=== PATIENT | female | born 1980 | race Caucasian/White ===

== ENCOUNTER 2024-07-27 00:47 | Outpatient (CLI) | payer BC, SELFPAY ==
[2024-07-27 17:09] LABS: TSH (W/Ref FT4) 0.81 uIU/mL (0.36-3.74)
[2024-07-28 22:25] LABS: Estradiol 38 pg/mL (See Note)
[2024-07-30 09:58] LABS: FSH 20.5 mIU/mL (See Note)
[2024-07-30 10:02] LABS: LH 13.5 mIU/mL (See Note); Prolactin 10.5 ng/mL (See Note)
== END 2024-07-27 00:48 | disposition home or self-care (01) ==
LOC: LBO 00:47
DX: N92.6 Irregular menstruation, unspecified (principal)
CPT/HCPCS: 36415; 84402; 84403; 82670; 83001; 83002; 84146; 84443

== ENCOUNTER 2024-12-27 14:04 | Outpatient (REF) | payer BC, SELFPAY ==
[2024-12-27 15:21] LABS: Abs Immature Grans 0.02 10^3/uL (0.0-0.06); HCT 43.0 % (36.0-46.0); HGB 14.3 g/dL (11.2-15.7); Immature Grans % 0.3 %; MCH 30.9 pg (27.0-33.0); MCHC 33.3 % (32.0-36.0); MCV 93 fL (80-95); MPV 10.9 fL (8.0-11.0); Platelet Count 259 10^3/uL (130-400); RBC 4.63 10^6/uL (3.93-5.22); RDW 12.3 % (11.7-14.6); RDW-SD 42.4 fL; WBC 7.18 10^3/uL (4.4-10.8)
[2024-12-27 15:44] LABS: ALT 20 U/L (14-59); AST 19 U/L (15-37); Albumin 4.0 g/dL (3.4-5.0); Alkaline Phosphatase 63 U/L (46-116); Anion Gap 5.6 mmol/L (3-11); BUN 16 mg/dL (7-18); Bilirubin, Total 0.9 mg/dL (0.2-1.0); CO2 28.4 mmol/L (21.0-32.0); Calcium 9.5 mg/dL (8.5-10.1); Calculated LDL 89 mg/dL (<100); Chloride 102 mmol/L (98-107); Cholesterol 164 mg/dL (<200); Estimated GFR 93.70 (mL/min/1.73m2); Glucose 75 mg/dL (74-106); HDL Cholesterol 62 mg/dL (>or=50); Potassium 4.7 mmol/L (3.5-5.1); Sodium 136 mmol/L (136-145); TSH 0.88 uIU/mL (0.36-3.74); Total Protein 8.0 g/dL (6.4-8.2); Triglyceride 68 mg/dL (<150)
[2024-12-27 15:54] LABS: Hemoglobin A1C 4.8 % (<5.7)
== END 2024-12-27 14:05 | disposition home or self-care (01) ==
LOC: NCHCN 14:04
PROVIDERS: PCP Family Medicine; Visit Provider Family Medicine
DX: Z13.220 Encounter for screening for lipoid disorders (principal); Z13.1 Encounter for screening for diabetes mellitus; Z13.29 Encounter for screening for other suspected endocrine disorder
CPT/HCPCS: 80053; 80061; 83036; 84439; 84443; 85025